=== PATIENT | female | born 1970 | race Caucasian/White ===

== ENCOUNTER 2022-12-08 13:28 | Outpatient (AMB) | payer OTHER, SELFPAY ==
[2022-12-08 14:06] VITALS: BMI 36.8
--- NOTE | 2022-12-08 14:06 | MHC.AMNUTRGE ---
Intake VS Expanded 12/08/22 14:06 12/19/22 19:39 Height 5 ft 7 in 5 ft 7 in Weight 234 lb 12.677 oz 235 lb BMI 36.8 36.8 Intake Visit Reasons: Obesity-LVM HPI Nutrition Presentation Details Pt presents for MNT for obesity. Pt was referred by Dr. Tiki Mcneil from [facility] Pt reports wt in 2019 was at 279 lbs and has been able to lose weight by working with a personal finance instructor however weight has plateaued at 235 lbs. 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 (30 -45 min warm up and 30 minutes - strength training ) Fluids : 64 oz /d ETOH/SMoking -- FIY-Fsimjhr-Uy.Jeor Equation Height 5 ft 7 in Weight 235 lb Resting Metabolic Rate 1711.66 Calculated Activity Level Sedentary Calories Needed to Maintain Weight 2053.99 Diagnosis Nutrition problem #1 overweight/obesity As related to (etiology) #1 inadequate oral intake As evidenced by (sign/symptom) #1 high BMI Monitoring/Goals Monitoring/Goals details Increase fluid intake : 80-90 oz/day Learning/Education Readiness to learn good Stages of change action Educational materials provided Yes (meal planning, fluid intake) Most Recent Diabetes Results: No Data to Display Assessment & Plan Assessment & Plan (1) Obesity (BMI 30-39.9): Code(s): E66.9 - Obesity, unspecified Plan: wt: 107 kg Est kcal needs as per MSJ: 2100 (40% carb, 30% protein/fat) Est fluid needs as per 25-30 ml/d: 2700- 3200 Est prot per day as per 1 g/kg bw: 107 Recommend fiber intake : 8-10 g per day and gradually increase to 25-28 g per day for women and 35-38 g for men or as tolerated Recommend sodium intake per day : less than 2000 mg Educated patient on: ( R = reviewed V = verbalizes understanding N/R = needs review N/A = not applicable Food sources of carbohydrate, adequate serving sizes and its role in various health conditions: R Differences between complex carbohydrates a simple carbohydrates, role of fiber in diet: R Differences between types of fats and role in diet (mono on saturated fat fatty acids, saturated fatty acids, trans fats): R Food sources of sodium in salt and healthy modifications for heart health in kidney health: NR Vitamins and minerals: R Healthy plate method concept: R V Physical activity: Benefits a precaution: R V Patient Instructions: Practice mindful eating strategies Increase fluid, choose low sugar beverages, aim to increase to 80-90 oz per day keep track of your caloric intake, measure food portions Coding Level of Care Code Nutr Indiv Intake (08287) Diagnoses Obesity (BMI 30-39.9) E66.9 Time Spent (min) 30
[2022-12-19 19:39] VITALS: BMI 36.8
== END 2022-12-08 14:44 | disposition home or self-care (01) ==
PROVIDERS: PCP Internal Medicine; Visit Provider Dietitian, Registered
DX: E66.9 Obesity, unspecified (principal)

== ENCOUNTER → 2022-12-08 13:28 | Outpatient (BNVA) | payer OTHER, SELFPAY | PROVIDERS: PCP Internal Medicine; Visit Provider Dietitian, Registered | DX: E66.9 Obesity, unspecified (principal); Z68.36 Body mass index [BMI] 36.0-36.9, adult; Z71.3 Dietary counseling and surveillance | CPT/HCPCS: 97802 ==

== ENCOUNTER 2023-02-20 09:16 | Outpatient (AMB) | payer OTHER, SELFPAY ==
[2023-02-20 09:32] VITALS: BMI 37.4
--- NOTE | 2023-02-20 09:32 | A.OFFVIS_ITS ---
Intake VS Expanded 02/20/23 09:32 Height 5 ft 7 in Weight 238 lb 8.642 oz BMI 37.4 Intake Visit Reasons: obesity HPI Nutrition Presentation Details Pt presents for MNT for obesity. The Pt is utilizing calorie tracker (lose it), caloric intake averaging at 1800, and is noticing higher salt food intake and low protein intake. Pt brought food log to discuss Most Recent Diabetes Results: No Data to Display Assessment & Plan Assessment & Plan (1) Obesity (BMI 30-39.9): Code(s): E66.9 - Obesity, unspecified Plan: wt: 107 kg Est kcal needs as per MSJ: 2100 (40% carb, 30% protein/fat) Est fluid needs as per 25-30 ml/d: 2700- 3200 Est prot per day as per 1 g/kg bw: 107 Recommend fiber intake : 8-10 g per day and gradually increase to 25-28 g per day for women and 35-38 g for men or as tolerated Recommend sodium intake per day : less than 2000 mg Educated patient on: ( R = reviewed V = verbalizes understanding N/R = needs review N/A = not applicable * Food sources of carbohydrate, adequate serving sizes and its role in various health conditions: R * Differences between complex carbohydrates a simple carbohydrates, role of fiber in diet: R * Differences between types of fats and role in diet (mono on saturated fat fatty acids, saturated fatty acids, trans fats): R * Food sources of sodium in salt and healthy modifications for heart health in kidney health: NR * Vitamins and minerals: R * Healthy plate method concept: R V * Physical activity: Benefits a precaution: R V * Patient Instructions: Choose foods with vitamin k2 (kefir, chicken breast, sauerkraut Include 3 fruits/day replacing empty calories high in salt (cookies/chips and the like) Continue making gradual diet modifications reducing foods higher in salt /carb Coding Level of Care Code Nutr Indiv Subseq (35192) Diagnoses Obesity (BMI 30-39.9) E66.9 Time Spent (min) 20
== END 2023-02-20 09:52 | disposition home or self-care (01) ==
PROVIDERS: PCP Internal Medicine; Visit Provider Dietitian, Registered
DX: E66.9 Obesity, unspecified (principal)

== ENCOUNTER → 2023-02-20 09:16 | Outpatient (BNVA) | payer OTHER, SELFPAY | PROVIDERS: PCP Internal Medicine; Visit Provider Dietitian, Registered | DX: E66.9 Obesity, unspecified (principal); Z68.37 Body mass index [BMI] 37.0-37.9, adult | CPT/HCPCS: 97803 ==

== ENCOUNTER 2023-04-10 08:51 | Outpatient (AMB) | payer OTHER, SELFPAY ==
[2023-04-10 08:56] VITALS: BMI 37.7
--- NOTE | 2023-04-10 08:56 | A.OFFVIS_ITS ---
Intake VS Expanded 04/10/23 08:56 Height 5 ft 7 in Weight 240 lb 11.916 oz BMI 37.7 Intake Visit Reasons: obesity/LVM HPI Nutrition Presentation Details Pt presents for MNT f/u for Obesity Patient reports dietary indiscretion and lack of physical activity in the past month . Most Recent Diabetes Results: No Data to Display Assessment & Plan Assessment & Plan (1) Obesity (BMI 30-39.9): Code(s): E66.9 - Obesity, unspecified Plan: wt: 107 kg , (109 kg 04/2023) Est kcal needs as per MSJ: 2100 (40% carb, 30% protein/fat) Est fluid needs as per 25-30 ml/d: 2700- 3200 Est prot per day as per 1 g/kg bw: 107 Recommend fiber intake : 8-10 g per day and gradually increase to 25-28 g per day for women and 35-38 g for men or as tolerated Recommend sodium intake per day : less than 2000 mg Educated patient on: ( R = reviewed V = verbalizes understanding N/R = needs review N/A = not applicable * Food sources of carbohydrate, adequate serving sizes and its role in various health conditions: R * Differences between complex carbohydrates a simple carbohydrates, role of fiber in diet: R * Differences between types of fats and role in diet (mono on saturated fat fatty acids, saturated fatty acids, trans fats): R * Food sources of sodium in salt and healthy modifications for heart health in kidney health: R * Vitamins and minerals: R * Healthy plate method concept: R V * Physical activity: Benefits a precaution: R V * Patient Instructions: Include low sugar fluids in your diet ,aim to reach at least 64 oz per day Choose foods low in salt (breads, cereals, highly processed foods, cheese, pastries) Practice mindful eating Resume physical activity, aim at 30 minutes of aerobic types of exercises at least 3 times a week Coding Level of Care Code Nutr Indiv Subseq (89880) Diagnoses Obesity (BMI 30-39.9) E66.9 Time Spent (min) 15
== END 2023-04-10 09:11 | disposition home or self-care (01) ==
PROVIDERS: PCP Internal Medicine; Visit Provider Dietitian, Registered
DX: E66.9 Obesity, unspecified (principal)

== ENCOUNTER → 2023-04-10 08:51 | Outpatient (BNVA) | payer OTHER, SELFPAY | PROVIDERS: PCP Internal Medicine; Visit Provider Dietitian, Registered | DX: E66.9 Obesity, unspecified (principal); Z68.37 Body mass index [BMI] 37.0-37.9, adult; Z71.3 Dietary counseling and surveillance | CPT/HCPCS: 97803 ==